=== PATIENT | female | born 1950 | race Caucasian/White ===

== ENCOUNTER 2018-07-30 13:20 | Emergency (ER) | payer MEDICARE, SELFPAY ==
[2018-07-30 13:24] VITALS: BP 145/80; PULSE 88; RESP 20; TEMP 36.9; O2SAT 100
--- NOTE | 2018-07-30 13:28 | DI.RAD.S_ITS ---
PROCEDURE: XR KNEE RT 3V INDICATIONS: anterior knee pain after glf TECHNIQUE: 3 views of the knee were acquired. COMPARISON: None. FINDINGS: Bones: Knee arthroplasty has been performed. No fractures or dislocations. No suspicious bony lesions. Soft tissues: No joint effusion. No suspicious soft tissue calcifications. IMPRESSION: No acute fracture. No osseous lesion. If symptoms and/or clinical suspicion for pathology persist, further assessment with repeat, or advanced imaging (e.g., CT or bone scan) may be helpful for further assessment. Dictated by: Reema Soliman M.D. on 07/30/2018 at 13:59 Approved by: Reema Soliman M.D. on 07/30/2018 at 13:59
--- NOTE | 2018-07-30 13:29 | DI.RAD.S_ITS ---
PROCEDURE: XR ANKLE RT MIN 3V INDICATIONS: rt ankle pain all over after GLF TECHNIQUE: 3 views of the ankle were acquired. COMPARISON: None. FINDINGS: Bones: No acute fractures or dislocations. Healed fracture deformity of the distal tibia and fibula is present. Ankle mortise is normally aligned. No suspicious bony lesions. Soft tissues: No tibiotalar joint effusion. Achilles tendon appears normal. IMPRESSION: No acute fracture. No osseous lesion. If symptoms and/or clinical suspicion for pathology persist, further assessment with repeat, or advanced imaging (e.g., CT, MRI, or bone scan) may be helpful for further assessment. Dictated by: Reema Soliman M.D. on 07/30/2018 at 13:58 Approved by: Reema Soliman M.D. on 07/30/2018 at 13:59
--- NOTE | 2018-07-30 15:03 | ED.LOWEXIN ---
HPI - Extremity Injury (Lower) <APOLLO Braga - Last Filed: 07/30/18 18:52> General Chief Complaint: Extremity Injury, Lower Stated Complaint: 'MY ANKLE AND MY KNEE' Time Seen by Provider: 07/30/18 14:40 Source: patient Mode of arrival: ambulatory Limitations: no limitations History of Present Illness HPI Narrative: Patient is a 68-year-old female who states she has a history of a knee replacement who presents after ground level fall this morning at approximately 6:00 a.m.. She states she slipped and fell while walking on a ramp to get out 0 plain. She presents complaining of right ankle pain, right knee pain. She denies loss of consciousness, denies hitting her head, denies neck pain or back pain. She does not take blood thinners. She is concerned as she has history of a right knee replacement last year. She also has history of ankle surgery. She has also been ambulating since the accident. Related Data Home Medications Medication Instructions Recorded Confirmed escitalopram oxalate 20 mg PO DAILY 07/30/18 07/30/18 glipizide 5 mg PO BID 07/30/18 07/30/18 insulin glargine [Lantus Solostar 1 dose SUBCUT DIRECTED 07/30/18 07/30/18 U-100 Insulin] irbesartan 150 mg PO DAILY 07/30/18 07/30/18 levothyroxine 1 dose PO DAILY 07/30/18 07/30/18 liraglutide [Victoza 3-Jordan] 1 dose SUBCUT DIRECTED 07/30/18 07/30/18 lovastatin 20 mg PO DAILY 07/30/18 07/30/18 metformin 1,000 mg PO BID 07/30/18 07/30/18 minocycline 100 mg PO DAILY 07/30/18 07/30/18 omeprazole 20 mg PO DAILY 07/30/18 07/30/18 Review of Systems <APOLLO Braga - Last Filed: 07/30/18 18:52> Review of Systems GENERAL: Denies chills, fatigue, malaise, fever, sweats. HEENT: Denies sinus pain, ear pain, sore throat, difficulty swallowing, dizziness. RESPIRATORY: Denies dyspnea, cough, wheezing, hemoptysis, sputum. CARDIOVASCULAR: Denies chest pain, palpitations, orthopnea, edema, GASTROINTESTINAL: Denies nausea, vomiting, abdominal pain, diarrhea, constipation, melena. : Denies dysuria, frequency, incontinence, hematuria, urinary retention. MUSCULOSKELETAL: See HPI SKIN: Denies rash, skin lesions, or other NEUROLOGIC: Denies weakness, headache, numbness, change in speech, confusion, seizures, incoordination. PSYCHIATRIC: No concerning psychosocial issues. 12 point review of systems is negative except for those stated above Exam <LUIS Braga- - Last Filed: 07/30/18 18:52> Narrative Exam Narrative: GENERAL: This is a well-nourished, well-developed patient, in no acute distress. HEAD: Atraumatic. Normocephalic. No temporal or scalp tenderness. EYES: Pupils equal round and reactive. Extraocular motions intact. No scleral icterus. No injection or drainage. ENT: Nose without bleeding, purulent drainage or septal hematoma. Throat without erythema, tonsillar hypertrophy or exudate. Uvula midline. Airway patent. NECK: Trachea midline. No JVD or lymphadenopathy. Supple, nontender, no meningeal signs. No pain to C-spine or spinal palpation. CARDIOVASCULAR: Regular rate and rhythm without murmurs, gallops, or rubs. RESPIRATORY: Clear to auscultation. Breath sounds equal bilaterally. No wheezes, rales, or rhonchi. GASTROINTESTINAL: Abdomen soft, non-tender, nondistended. No hepato-splenomegaly, or palpable masses. No guarding. EXTREMITIES: Generalized pain to palpation right ankle. Patient is able pronate, supinate flex and extend right ankle. Slight swelling noted lateral aspect right ankle. Generalized pain to palpation right knee. BACK: Nontender without deformity or crepitance. No flank tenderness. NEURO: AOx3. SKIN: Well-healed surgical incision anterior aspect of right knee. No noted ecchymosis erythema abrasion laceration right knee. No noted ecchymosis, erythema, abrasion laceration right ankle. Initial Vital Signs Initial Vital Signs: Vital Signs Temperature 98.4 F 07/30/18 13:24 Pulse Rate 88 07/30/18 13:24 Respiratory Rate 20 07/30/18 13:24 Blood Pressure 145/80 H 07/30/18 13:24 Pulse Oximetry 100 07/30/18 13:24 <DO Princess Ellsworth Last Filed: 07/31/18 07:59> Initial Vital Signs Initial Vital Signs: Vital Signs Temperature 98.4 F 07/30/18 13:24 Pulse Rate 88 07/30/18 13:24 Respiratory Rate 20 07/30/18 13:24 Blood Pressure 145/80 H 07/30/18 13:24 Pulse Oximetry 100 07/30/18 13:24 Course <APOLLO Braga - Last Filed: 07/30/18 18:52> Orders Ordered: ED Orders 07/30/18 13:28 XR knee RT 3V Stat 07/30/18 13:29 XR ankle RT min 3V Stat Vital Signs - 8 hr 07/30/18 13:24 Temperature 98.4 F Pulse Rate 88 Respiratory Rate 20 Blood Pressure 145/80 H Pulse Oximetry 100 <Arlene Bowens DO - Last Filed: 07/31/18 07:59> Orders Ordered: ED Orders 07/30/18 13:28 XR knee RT 3V Stat 07/30/18 13:29 XR ankle RT min 3V Stat Vital Signs - 8 hr 07/30/18 13:24 Temperature 98.4 F Pulse Rate 88 Respiratory Rate 20 Blood Pressure 145/80 H Pulse Oximetry 100 MDM - Extremity Injury (Lower) <APOLLO Braga - Last Filed: 07/30/18 18:52> Imaging Data right ankle xray: Radiologist's impression: [place] [address] XRay Report Signed Patient: URSULA GARRIDO EMR#: [id number] : 8Acct:[id number] Age/Sex: 68 / FDate of Service: 07/30/18 Loc: ED Accession Number: [id number] Procedure: XR ankle RT min 3V Ordering Provider: Dory Daniel PROCEDURE: XR ANKLE RT MIN 3V INDICATIONS: rt ankle pain all over after GLF TECHNIQUE: 3 views of the ankle were acquired. COMPARISON: None. FINDINGS: Bones: No acute fractures or dislocations. Healed fracture deformity of the distal tibia and fibula is present. Ankle mortise is normally aligned. No suspicious bony lesions. Soft tissues: No tibiotalar joint effusion. Achilles tendon appears normal. IMPRESSION: No acute fracture. No osseous lesion. If symptoms and/or clinical suspicion for pathology persist, further assessment with repeat, or advanced imaging (e.g., CT, MRI, or bone scan) may be helpful for further assessment. Dictated by: Reema Soliman M.D. on 07/30/2018 at 13:58 Approved by: Reema Soliman M.D. on 07/30/2018 at 13:59 right knee xray : Radiologist's impression: [address] [address] XRay Report Signed Patient: URSULA GARRIDO EMR#: [id number] : 8Acct:[id number] Age/Sex: 68 / FDate of Service: 07/30/18 Loc: ED Accession Number: [id number] Procedure: XR knee RT 3V Ordering Provider: Dory Daniel PROCEDURE: XR KNEE RT 3V INDICATIONS: anterior knee pain after glf TECHNIQUE: 3 views of the knee were acquired. COMPARISON: None. FINDINGS: Bones: Knee arthroplasty has been performed. No fractures or dislocations. No suspicious bony lesions. Soft tissues: No joint effusion. No suspicious soft tissue calcifications. IMPRESSION: No acute fracture. No osseous lesion. If symptoms and/or clinical suspicion for pathology persist, further assessment with repeat, or advanced imaging (e.g., CT or bone scan) may be helpful for further assessment. Dictated by: Reema Soliman M.D. on 07/30/2018 at 13:59 Approved by: Reema Soliman M.D. on 07/30/2018 at 13:59 [facility] Narrative Medical decision making narrative: Patient is a 5-year-old female presents after a ground level fall with right knee and ankle pain. She is not on blood thinners, denies any shortness of breath, chest pain neck pain or back pain. She is adamant that she slipped and fell and did not get lightheaded and fall. Her x-rays came back negative for her ankle and her knee. I discussed at length rest ice compression elevation as well as Seth bandage for support. She has been ambulating since the accident. I discussed at length follow up with primary care provider if needed. She had no questions or concerns upon discharge in stated understanding of return precautions of shortness of breath, confusion, chest pain or any other acute concerns. Discharge Plan Departure Patient Disposition: Home Clinical Impression: Acute knee pain, Acute ankle pain, Fall from ground level Discharge Date/Time: 07/30/18 15:52 Interventions: ED Discharge Assessment Last Done: 07/30/18 15:52 Instructions: How To Perform RICE (Rest, Ice, Compress, Elevate), How to Prevent Falls, DI for Ankle Pain, DI for Knee Pain Activity Restrictions/Additional Instructions: Your xrays came back normal today. Please used rest, ice, compression, elevation. Please use [id number] pain medications as needed and able. Please follow up with PCP as discussed. Prescriptions: No Action metformin 500 mg Tablet 1,000 mg PO BID RF: 0 minocycline 100 mg Capsule 100 mg PO DAILY RF: 0 levothyroxine 50 mcg Tablet 1 dose PO DAILY RF: 0 omeprazole 20 mg Capsule,Delayed Release(Dr/Ec) 20 mg PO DAILY RF: 0 irbesartan 150 mg Tablet 150 mg PO DAILY RF: 0 lovastatin 20 mg Tablet 20 mg PO DAILY RF: 0 glipizide 5 mg Tablet 5 mg PO BID RF: 0 escitalopram oxalate 20 mg Tablet 20 mg PO DAILY RF: 0 insulin glargine [Lantus Solostar U-100 Insulin] 100 unit/mL (3 mL) Insulin Pen 1 dose subcut DIRECTED RF: 0 liraglutide [Victoza 3-Jordan] 0.6 mg/0.1 mL (18 mg/3 mL) pen injector 1 dose subcut DIRECTED RF: 0 <Arlene Bowens DO - Last Filed: 07/31/18 07:59> Cosign ED Attending Lillian Attestation: I was immediately available in the department for consultation. Documentation has been reviewed. I agree with assessment and plan.
--- NOTE | 2018-07-30 15:08 | ED_ITS ---
HPI - Extremity Injury (Lower) <APOLLO Braga - Last Filed: 07/30/18 18:52> General Chief Complaint: Extremity Injury, Lower Stated Complaint: 'MY ANKLE AND MY KNEE' Time Seen by Provider: 07/30/18 14:40 Source: patient Mode of arrival: ambulatory Limitations: no limitations History of Present Illness HPI Narrative: Patient is a 68-year-old female who states she has a history of a knee replacement who presents after ground level fall this morning at approximately 6:00 a.m.. She states she slipped and fell while walking on a ramp to get out 0 plain. She presents complaining of right ankle pain, right knee pain. She denies loss of consciousness, denies hitting her head, denies neck pain or back pain. She does not take blood thinners. She is concerned as she has history of a right knee replacement last year. She also has history of ankle surgery. She has also been ambulating since the accident. Related Data Home Medications Medication Instructions Recorded Confirmed escitalopram oxalate 20 mg PO DAILY 07/30/18 07/30/18 glipizide 5 mg PO BID 07/30/18 07/30/18 insulin glargine [Lantus Solostar 1 dose SUBCUT DIRECTED 07/30/18 07/30/18 U-100 Insulin] irbesartan 150 mg PO DAILY 07/30/18 07/30/18 levothyroxine 1 dose PO DAILY 07/30/18 07/30/18 liraglutide [Victoza 3-Jordan] 1 dose SUBCUT DIRECTED 07/30/18 07/30/18 lovastatin 20 mg PO DAILY 07/30/18 07/30/18 metformin 1,000 mg PO BID 07/30/18 07/30/18 minocycline 100 mg PO DAILY 07/30/18 07/30/18 omeprazole 20 mg PO DAILY 07/30/18 07/30/18 Review of Systems <APOLLO Braga - Last Filed: 07/30/18 18:52> Review of Systems GENERAL: Denies chills, fatigue, malaise, fever, sweats. HEENT: Denies sinus pain, ear pain, sore throat, difficulty swallowing, dizziness. RESPIRATORY: Denies dyspnea, cough, wheezing, hemoptysis, sputum. CARDIOVASCULAR: Denies chest pain, palpitations, orthopnea, edema, GASTROINTESTINAL: Denies nausea, vomiting, abdominal pain, diarrhea, constipation, melena. : Denies dysuria, frequency, incontinence, hematuria, urinary retention. MUSCULOSKELETAL: See HPI SKIN: Denies rash, skin lesions, or other NEUROLOGIC: Denies weakness, headache, numbness, change in speech, confusion, seizures, incoordination. PSYCHIATRIC: No concerning psychosocial issues. 12 point review of systems is negative except for those stated above Exam <LUIS Braga- - Last Filed: 07/30/18 18:52> Narrative Exam Narrative: GENERAL: This is a well-nourished, well-developed patient, in no acute distress. HEAD: Atraumatic. Normocephalic. No temporal or scalp tenderness. EYES: Pupils equal round and reactive. Extraocular motions intact. No scleral icterus. No injection or drainage. ENT: Nose without bleeding, purulent drainage or septal hematoma. Throat without erythema, tonsillar hypertrophy or exudate. Uvula midline. Airway patent. NECK: Trachea midline. No JVD or lymphadenopathy. Supple, nontender, no meningeal signs. No pain to C-spine or spinal palpation. CARDIOVASCULAR: Regular rate and rhythm without murmurs, gallops, or rubs. RESPIRATORY: Clear to auscultation. Breath sounds equal bilaterally. No wheezes , rales, or rhonchi. GASTROINTESTINAL: Abdomen soft, non-tender, nondistended. No hepato-splenomegaly , or palpable masses. No guarding. EXTREMITIES: Generalized pain to palpation right ankle. Patient is able pronate, supinate flex and extend right ankle. Slight swelling noted lateral aspect right ankle. Generalized pain to palpation right knee. BACK: Nontender without deformity or crepitance. No flank tenderness. NEURO: AOx3. SKIN: Well-healed surgical incision anterior aspect of right knee. No noted ecchymosis erythema abrasion laceration right knee. No noted ecchymosis, erythema, abrasion laceration right ankle. Initial Vital Signs Initial Vital Signs: Vital Signs Temperature 98.4 F 07/30/18 13:24 Pulse Rate 88 07/30/18 13:24 Respiratory Rate 20 07/30/18 13:24 Blood Pressure 145/80 H 07/30/18 13:24 Pulse Oximetry 100 07/30/18 13:24 <DO Princess Ellsworth Last Filed: 07/31/18 07:59> Initial Vital Signs Initial Vital Signs: Vital Signs Temperature 98.4 F 07/30/18 13:24 Pulse Rate 88 07/30/18 13:24 Respiratory Rate 20 07/30/18 13:24 Blood Pressure 145/80 H 07/30/18 13:24 Pulse Oximetry 100 07/30/18 13:24 Course <APOLLO Braga - Last Filed: 07/30/18 18:52> Orders Ordered: ED Orders 07/30/18 13:28 XR knee RT 3V Stat 07/30/18 13:29 XR ankle RT min 3V Stat Vital Signs - 8 hr 07/30/18 13:24 Temperature 98.4 F Pulse Rate 88 Respiratory Rate 20 Blood Pressure 145/80 H Pulse Oximetry 100 <Arlene Bowens DO - Last Filed: 07/31/18 07:59> Orders Ordered: ED Orders 07/30/18 13:28 XR knee RT 3V Stat 07/30/18 13:29 XR ankle RT min 3V Stat Vital Signs - 8 hr 07/30/18 13:24 Temperature 98.4 F Pulse Rate 88 Respiratory Rate 20 Blood Pressure 145/80 H Pulse Oximetry 100 MDM - Extremity Injury (Lower) <APOLLO Braga - Last Filed: 07/30/18 18:52> Imaging Data right ankle xray: Radiologist's impression: [place] [address] XRay Report Signed Patient: URSULA GARRIDO EMR#: [id number] : 8Acct:[id number] Age/Sex: 68 / FDate of Service: 07/30/18 Loc: ED Accession Number: [id number] Procedure: XR ankle RT min 3V Ordering Provider: Dory Daniel PROCEDURE: XR ANKLE RT MIN 3V INDICATIONS: rt ankle pain all over after GLF TECHNIQUE: 3 views of the ankle were acquired. COMPARISON: None. FINDINGS: Bones: No acute fractures or dislocations. Healed fracture deformity of the distal tibia and fibula is present. Ankle mortise is normally aligned. No suspicious bony lesions. Soft tissues: No tibiotalar joint effusion. Achilles tendon appears normal. IMPRESSION: No acute fracture. No osseous lesion. If symptoms and/or clinical suspicion for pathology persist, further assessment with repeat, or advanced imaging (e.g. , CT, MRI, or bone scan) may be helpful for further assessment. Dictated by: Reema Soliman M.D. on 07/30/2018 at 13:58 Approved by: Reema Soliman M.D. on 07/30/2018 at 13:59 right knee xray : Radiologist's impression: [address] [address] XRay Report Signed Patient: URSULA GARRIDO EMR#: [id number] : 8Acct:[id number] Age/Sex: 68 / FDate of Service: 07/30/18 Loc: ED Accession Number: [id number] Procedure: XR knee RT 3V Ordering Provider: Dory Daniel PROCEDURE: XR KNEE RT 3V INDICATIONS: anterior knee pain after glf TECHNIQUE: 3 views of the knee were acquired. COMPARISON: None. FINDINGS: Bones: Knee arthroplasty has been performed. No fractures or dislocations. No suspicious bony lesions. Soft tissues: No joint effusion. No suspicious soft tissue calcifications. IMPRESSION: No acute fracture. No osseous lesion. If symptoms and/or clinical suspicion for pathology persist, further assessment with repeat, or advanced imaging (e.g. , CT or bone scan) may be helpful for further assessment. Dictated by: Reema Soliman M.D. on 07/30/2018 at 13:59 Approved by: Reema Soliman M.D. on 07/30/2018 at 13:59 [facility] Narrative Medical decision making narrative: Patient is a 5-year-old female presents after a ground level fall with right knee and ankle pain. She is not on blood thinners, denies any shortness of breath, chest pain neck pain or back pain. She is adamant that she slipped and fell and did not get lightheaded and fall. Her x-rays came back negative for her ankle and her knee. I discussed at length rest ice compression elevation as well as Seth bandage for support. She has been ambulating since the accident. I discussed at length follow up with primary care provider if needed. She had no questions or concerns upon discharge in stated understanding of return precautions of shortness of breath, confusion, chest pain or any other acute concerns. Discharge Plan Departure Patient Disposition: Home Clinical Impression: Acute knee pain, Acute ankle pain, Fall from ground level Discharge Date/Time: 07/30/18 15:52 Interventions: ED Discharge Assessment Last Done: 07/30/18 15:52 Instructions: How To Perform RICE (Rest, Ice, Compress, Elevate), How to Prevent Falls, DI for Ankle Pain, DI for Knee Pain Activity Restrictions/Additional Instructions: Your xrays came back normal today. Please used rest, ice, compression, elevation. Please use [id number] pain medications as needed and able. Please follow up with PCP as discussed. Prescriptions: No Action metformin 500 mg Tablet 1,000 mg PO BID RF: 0 minocycline 100 mg Capsule 100 mg PO DAILY RF: 0 levothyroxine 50 mcg Tablet 1 dose PO DAILY RF: 0 omeprazole 20 mg Capsule,Delayed Release(Dr/Ec) 20 mg PO DAILY RF: 0 irbesartan 150 mg Tablet 150 mg PO DAILY RF: 0 lovastatin 20 mg Tablet 20 mg PO DAILY RF: 0 glipizide 5 mg Tablet 5 mg PO BID RF: 0 escitalopram oxalate 20 mg Tablet 20 mg PO DAILY RF: 0 insulin glargine [Lantus Solostar U-100 Insulin] 100 unit/mL (3 mL) Insulin Pen 1 dose subcut DIRECTED RF: 0 liraglutide [Victoza 3-Jordan] 0.6 mg/0.1 mL (18 mg/3 mL) pen injector 1 dose subcut DIRECTED RF: 0 <Arlene Bowens DO - Last Filed: 07/31/18 07:59> Cosign ED Attending Lillian Attestation: I was immediately available in the department for consultation. Documentation has been reviewed. I agree with assessment and plan.
== END 2018-07-30 15:52 | disposition home or self-care (01) ==
PROVIDERS: Emergency Provider Nurse Practitioner Family
DX: M25.571 Pain in right ankle and joints of right foot (principal); M25.561 Pain in right knee; W01.0XXA Fall on same level from slipping, tripping and stumbling without subsequent striking against object, initial encounter
CPT/HCPCS: 73562; 73610; 99283

== ENCOUNTER → 2022-02-21 12:11 | Outpatient (CLI) | payer MEDICARE, SELFPAY | PROVIDERS: Visit Provider Student in an Organized Health Care Education/Training Program | DX: N39.0 Urinary tract infection, site not specified (principal) | CPT/HCPCS: 87077; 87086; 87186 ==